=== PATIENT | male | born 1970 | race Caucasian/White ===

== ENCOUNTER 2017-09-22 13:31 | Emergency (ER) | payer BC, SELFPAY ==
--- NOTE | 2017-09-22 14:11 | RAD ---
THREE VIEWS LEFT WRIST: INDICATION: Fall with left wrist pain. FINDINGS: There is no fracture or dislocation. Mild osteophytosis is present. IMPRESSION: No acute osseous abnormality. POS: [facility]
== END 2017-09-22 14:15 | disposition home or self-care (01) ==
LOC: SCSER 13:31
DX: S63.502A Unspecified sprain of left wrist, initial encounter (principal); F41.9 Anxiety disorder, unspecified; F32.9 Major depressive disorder, single episode, unspecified; Z87.891 Personal history of nicotine dependence; W17.89XA Other fall from one level to another, initial encounter
CPT/HCPCS: 29125